=== PATIENT | female | born 1995 | race Hispanic/Latino ===

== ENCOUNTER 2017-10-27 10:51 | Outpatient (CLI) | payer OTHER | END 2017-10-27 10:52 | disposition home or self-care (01) | LOC: BICULT 10:51 | PROVIDERS: ATTEND Student in an Organized Health Care Education/Training Program | DX: Z34.82 Encounter for supervision of other normal pregnancy, second trimester (principal) | CPT/HCPCS: 76805 ==

== ENCOUNTER → 2018-01-15 | Day surgery (SDC) | payer OTHER ==
[~2018-01-15] MED LIST: Acetaminophen 500 MG TAB PO PRN; Butorphanol Tartrate 1 MG/ML VIAL SLOW IVP PRN; Lactated Ringer's 1,000 ML IV SCH; Tamsulosin HCl 0.4 MG CAP PO SCH
[2018-01-15 23:53] VITALS: BP 116/65; TEMP 98; BMI 27.4
[2018-01-15 23:54] LABS: Bilirubin Negative (Negative); Blood, Urine Small (Negative); Clarity CLEAR (Clear); Glucose, Urine (Dipstick) 100 mg/dL (Negative); Leukocyte Negative (Negative); Nitrite Negative (Negative); Protein, Urine (Dipstick) Negative (Neg-Trace); Specific Gravity, Urine 1.012 (1.002-1.036); Urobilinogen 0.2 mg/dL (0.2-1.0); pH, Urine 6.5 (5.0-9.0)
[2018-01-15 23:57] LABS: Bacteria/HPF None Seen HPF (None Seen); Hyaline Casts/LPF 4-6 HYALINE CAST LPF (0-3 Hyaline); Pathc Cast-AUWi Flag 0.58 (0-2.49); Squamous Epithelial 0-3 HPF (0-3); WBC/HPF 0-3 HPF (0-3)
--- NOTE | 2018-01-16 00:04 | PDOC.LDHP ---
Labor and Delivery H&P Chief complaint: other (R. side back pain/painful urination) HPI: 22 yo F @ 32.1 weeks presents to L&D with c/c of painful urination and R. sided back pain. Pt reports today she started experiencing R. sided back pain that would radiate to right side of her abdomen. She also reports having burning sensation when peeing today. Reports increased urinary frequency. Reports her abdomen tightening at times. Pt reports irritating vaginal discharge yesterday. Denies any fever/chills. Denies any SOB/chest pain. Denies any headaches, dizziness, lightheadness. Denies any swelling. Pt reports having uti 1 month ago tx with 7 day course of nitrofurantonin. She said it didn't really resolve so they gave her a 1x abx injection. She states it got a little better but has never improved fully this last month. Reports having tooth infection for last month which she has been taking 500mg amoxicllin. She also had leftover tylenol #3 which she took 1 today for pain and states did not help much with pain. +FM, denies ctx, denies LOF, denies any bleeding. Current gestational age (weeks): 32 (1) Grav: 2 Para: 1 Current complications: other (Pt to get growth U/S in a week for concern of IUGR) Abnormal US findings: No Past Medical History: N/A Current medications: pre- vitamins, other (Amoxcillin) Social history: none - Physical Exam Vital signs reviewed and normal: yes General: NAD, resting, breathing through contractions Heart: RRR Lungs: nonlabored breathing Abdomen: other (R. sided CVA tenderness noted. Abdomen NTTP. No masses noted. Gravid.) Extremeties: no edema FHT: category 1, variability present [place] contractions every: None seen - OB Labs Blood type: unknown Antibody Screen: unknown HIV: unknown RPR: unknown HEPSAg: unknown GBS: unknown - Assessment Possible UTI vs Round Ligament Pain - Plan Plan: observation in L&D -: 22 yo here for burning urination/R. side rib pain -UTI and VP3 ordered. VS stable. No sign of fever. - fibronectin ordered. -FHT cat 1 strip. FHR 140. Will continue to monitor. -Will await results and tx accordingly. <Heath Small - Last Filed: 01/16/18 00:06> <Jocelyn Hernandez - Last Filed: 01/16/18 00:24> Allergies/Adverse Reactions: Allergies Allergy/AdvReac Type Severity Reaction Status Date / Time Penicillins Allergy Mild Rash Verified 01/15/18 23:08 Attending Addendum - Attending Addendum Date/Time: 01/16/18 0023 I personally evaluated the patient and discussed the management with Dr. Small I agree with the History, Examination, Assessment and Plan documented above with any addition or exceptions noted below. UA with +blood but otherwise unremarkable for UTI. Renal ultrasound for kidney stone ordered. Patient advised to increase fluid intake. <Jocelyn Hernandez - Last Filed: 01/16/18 00:24>
--- NOTE | 2018-01-16 00:18 | PDOC.EVN ---
Event Note - Event Note Event Note: 22 yo @ 32.1 weeks presents w/ R. side R. pain. -U/A has no sign of infection. Large amounts of blood noted. Pt still having pain in R. side. Will order Renal U/S to assess for possible stone. -VP3 will not result til morning. -Tylenol PRN for pain. -FHT Cat 1 strip. continue to monitor. <Heath Small - Last Filed: 01/16/18 00:17> Attending Addendum - Attending Addendum Date/Time: 01/16/18 0103 I personally evaluated the patient and discussed the management with Dr. Small. I agree with the History, Examination, Assessment and Plan documented above with any addition or exceptions noted below. Renal ultrasound done but results pending. Will give IV fluids and pain medication at this time. <Jocelyn Hernandez - Last Filed: 01/16/18 01:04>
--- NOTE | 2018-01-16 07:02 | PDOC.EVN ---
Event Note - Event Note Event Note: Ultrasound showed possible 5x7mm stone at the VUJ. After receiving iv fluids and pain medication, patient feeling much better and pain resolved. Would like to go home. No fever or e/o infection at this time. Will d/c home with precautions. Advised to call clinic to schedule follow up appointment. Return if symptoms return.
--- NOTE | 2018-01-16 08:42 | ULT ---
PRELIMINARY REPORT/[facility]/EMERGENTY AFTER-HOURS PROCEDURE US Retroperitoneal Complete EXAM DATE/TIME: 01/16/2018 12:35 AM CLINICAL HISTORY: 22 years old, female; Abdominal pain; Right flank pain, blood in urine; 32 wks TECHNIQUE: Real-time ultrasound of the retroperitoneum with image documentation. Complete exam. COMPARISON: No relevant prior studies available. FINDINGS: The right kidney measures 13.3 cm longitudinally. The left kidney measures 11.4 cm longitudinally. Normal renal cortical echogenicity. Moderate right hydronephrosis. Possible 7 x 5 mm calcified stone in the region of the right UVJ. Minimal left hydronephrosis. No calcified renal stones. No perinephric fluid collections. Prevoid bladder via mist 225 mL. Left ureteral jet is visualized. IMPRESSION: 1. Moderate right hydronephrosis. Possible 7 x 5 mm calcified stone in the region of the right UVJ. 2. Minimal left hydronephrosis. Thank you for allowing us to participate in the care of your patient. Dictated and Authenticated by: Amauri Ahn MD 01/16/2018 1:25 AM Central Time ([place] & [place]) FINAL REPORT BILATERAL RENAL ULTRASOUND: History: Hematuria. Evaluate for hydronephrosis. Comparison: None. FINDINGS: This report is in agreement with preliminary report by [facility]. There is moderate right sided hydronephr osis. Mild left sided hydronephrosis. Questionable calculus in the right ureterovesicular junction me asuring 0.7 cm. Left ureteral jet is noted. POS: [facility]
== END ==
LOC: L&D/OP 22:38
PROVIDERS: ATTEND Obstetrics & Gynecology
DX: O99.89 Other specified diseases and conditions complicating pregnancy, childbirth and the puerperium (principal); N13.30 Unspecified hydronephrosis; R31.9 Hematuria, unspecified; N89.8 Other specified noninflammatory disorders of vagina; O99.613 Diseases of the digestive system complicating pregnancy, third trimester; K04.7 Periapical abscess without sinus; Z3A.32 32 weeks gestation of pregnancy; Z79.2 Long term (current) use of antibiotics; Z79.899 Other long term (current) drug therapy; Z88.0 Allergy status to penicillin
CPT/HCPCS: 51701; 76770; 81001; 87086; 87480; 87510; 87660; 96360; 96375; 99283; J0595

== ENCOUNTER 2018-01-24 13:28 | Outpatient (CLI) | payer OTHER ==
--- NOTE | 2018-01-24 14:41 | ULT ---
COMPLETE OB ULTRASOUND GREATER THAN 14 WEEKS: HISTORY: Size and dates. FINDINGS: A single viable intrauterine fetus is noted in cephalic presentation. Placenta is fundal. hea rt rate 133 b.p.m. Lower uterine segment was less than optimally seen. Amniotic fluid index 13.4 cm . Visualized brain, 4-chamber heart, stomach, kidneys, cord insert, bladder, spine, lips and nose , and 3-vessel cord were demonstrated and appear within normal limits. BIOMETRY: BPD 8.3 cm-33 weeks 2 days Head circumference 32.2 cm-36 weeks 6 days Abdominal circumference 29.1 cm-33 weeks 1 day Femur length 6.7 cm-34 weeks 3 days IMPRESSION: 1. Gestational age average 34 weeks 3 days. Estimated date of delivery 03/04/2018. 2. Estimated weight 2281 grams. POS: [facility]
== END 2018-01-24 13:29 | disposition home or self-care (01) ==
LOC: BICULT 13:28
PROVIDERS: ATTEND Obstetrics & Gynecology
DX: Z34.83 Encounter for supervision of other normal pregnancy, third trimester (principal); Z3A.34 34 weeks gestation of pregnancy
CPT/HCPCS: 76805

== ENCOUNTER 2018-03-08 04:39 | Inpatient (IN) | payer MEDICAID, OTHER, SELFPAY ==
[2018-03-08] MEDS: Lactated Ringer's 1,000 ML IV SCH ×2 (05:21→08:21)
[2018-03-08] MEDS ORDERED: Ondansetron PF 4 MG/2 ML Vial IVP PRN ×2 (05:22→13:11)
[2018-03-08] MEDS ORDERED: Acetaminophen/Codeine 30-300mg Tablet PO PRN ×2 (05:22)
[2018-03-08] MEDS ORDERED: Ibuprofen 800 MG TAB PO PRN (05:22)
[2018-03-08] MEDS ORDERED: Lidocaine 1% (PF) 30 ML VIAL SC PRN (05:22)
[2018-03-08 05:26] VITALS: BMI 27.1
[2018-03-08] MEDS ORDERED: Lactated Ringer's 1,000 ML IV SCH (05:30)
[2018-03-08 05:35] LABS: Hemoglobin 14.6 g/dL (12.0-16.0); Mean Corpuscular HGB CONC 35.2 g/dL (32.0-36.0); Mean Corpuscular Hemoglobin 32.4 pg (27.0-31.0); Mean Corpuscular Volume 91.9 fL (78.0-98.0); Mean Platelet Volume 8.7 fL (7.4-10.4); Platelet Count 209 thou/uL (130-400); Red Blood Cell (RBC) Count 4.49 mill/uL (4.20-5.40); White Blood Cell (WBC) Count 10.4 thou/uL (4.8-10.8)
[2018-03-08] MEDS ORDERED: Butorphanol Tartrate 1 MG/ML VIAL SLOW IVP PRN (05:35)
[2018-03-08] MEDS ORDERED: Butorphanol Tartrate 1 MG/ML VIAL ONE (05:41)
[2018-03-08] MEDS ORDERED: CEFAZOLIN 2 GM/50 ML BAG IVPB SCH (05:45)
[2018-03-08] MEDS ORDERED: CEFAZOLIN 1 GM in Sodium Chloride 0.9% 100 ML IVPB SCH (06:00)
[2018-03-08 06:14] LABS: HBSAg Index 0.24 S/CO (0-0.99); Hep B Surf Ag Non-Reactive S/CO (NonReactive); Syphilis Antibody Nonreactive (Nonreactive); Syphilis Antibody Index 0.04 S/CO (<1.00 Non-Reactive)
[2018-03-08] MEDS: NS / Oxytocin 40 units/1000ml 1,000 ML IV PRN ×2 (09:07→10:21)
--- NOTE | 2018-03-08 09:37 | PDOC.OPDEL ---
OB Operative/Delivery Note Delivery Dr/Surgeon: Denia Damon DO Pre-Delivery Diagnosis: active labor Procedure/Post Delivery Dx: spontaneous vaginal delivery Weeks gestation: 39 Anesthesia: local - Findings A Sex: male - 1 min: 9 - 5 min: 9 - Additional Findings/Plan Placenta delivered: spontaneous Repaired Obstetrical Laceration: 2nd degree (Deep 2nd degree, could visualize annal sphincter, but not disrupted.) Estimated blood loss: EBL 300 cc Compilations/Other Findings: in cephalic presentation Clear amniotic fluid Normal appearing placenta and cord Deep 2nd degree laceration repaired, able to see sphincter, however, not disrupted. Deep layers reapproximated with interrupted and remainder repaired in typical fashion. Post delivery plan: routine recovery
[2018-03-08] MEDS ORDERED: HYDROcodone/Acetaminophen 5/325 mg Tablet PO PRN (09:55)
[2018-03-08] MEDS ORDERED: Preparation H Ointment 28 GM TUBE PR PRN (13:11)
[2018-03-08] MEDS ORDERED: Methylergonovine 0.2 MG/ML VIAL IM PRN (13:11)
[2018-03-08] MEDS ORDERED: NS / Oxytocin 40 units/1000ml 1,000 ML IV SCH (13:11)
[2018-03-08] MEDS ORDERED: Milk Of Magnesia 30 ML UDCUP PO PRN (13:11)
[2018-03-08] MEDS ORDERED: Benzocaine/Menthol 20-0.5% 60 ML CAN TOP PRN (13:11)
[2018-03-08] MEDS ORDERED: diphenhydrAMINE 25 MG CAP PO PRN (13:11)
[2018-03-08] MEDS ORDERED: Zolpidem Tartrate 5 MG TAB PO PRN (13:11)
[2018-03-08] MEDS ORDERED: Lanolin Ointment 7 GM TUBE TOP PRN (13:11)
[2018-03-08] MEDS ORDERED: Promethazine HCl 25 MG/ML VIAL IM PRN (13:11)
[2018-03-08] MEDS ORDERED: Misoprostol 200 MCG TAB VAG PRN (13:11)
--- NOTE | 2018-03-08 13:12 | PDOC.LDHP ---
Labor and Delivery H&P Chief complaint: contractions HPI: LATE ENTRY H&P 22 yo @ 39w4d admit for active labor, 8 cm on initial evaluation Current gestational age (weeks): 39 Due date: 03/11/18 Dating criteria: last menstrual period Grav: 2 Para: 1 OB History Details: 1 term Current complications: none Abnormal US findings: No Past Medical History: Denies Current medications: pre-samuel vitamins Previous surgical history: none Allergies/Adverse Reactions: Allergies Allergy/AdvReac Type Severity Reaction Status Date / Time Penicillins Allergy Mild Rash Verified 03/08/18 05:06 Social history: none - Physical Exam Vital signs reviewed and normal: yes General: NAD Heart: RRR Lungs: nonlabored breathing Abdomen: gravid Extremeties: no edema FHT: category 1 [place] contractions every: q2-3 min - Vaginal Exam cm dilated: 9 (cephalic, AROM clear fluid on my initial exam ) Effacement: 100% Station: 0 - OB Labs Blood type: O RH: positive Antibody Screen: negative HIV: negative RPR: negative HEPSAg: negative 1 hour GCT: negative GBS: positive Urine drug screen: negative Additional Labs: AFP negative - Assessment L&D Assessment: term patient in labor - Plan Plan: admit to L&D, GBS antibiotic prophylaxis, informed consent obtained, anesthesia consult for pain management
[2018-03-08] MEDS: Ibuprofen 800 MG TAB PO SCH ×2 (14:08→21:26)
[2018-03-08] MEDS: HYDROcodone/Acetaminophen 5/325 mg Tablet PO PRN ×2 (14:12→18:35)
[2018-03-08] MEDS: Docusate Calcium (SURFAK) 240 MG CAP PO SCH (21:26)
[2018-03-09] MEDS: Ibuprofen 800 MG TAB PO SCH ×3 (05:56→21:20)
[2018-03-09] MEDS: HYDROcodone/Acetaminophen 5/325 mg Tablet PO PRN ×2 (06:33→21:20)
[2018-03-09 07:02] LABS: Mean Corpuscular HGB CONC 34.7 g/dL (32.0-36.0); Mean Corpuscular Hemoglobin 32.5 pg (27.0-31.0); Mean Corpuscular Volume 93.8 fL (78.0-98.0); Mean Platelet Volume 9.1 fL (7.4-10.4); Platelet Count 191 thou/uL (130-400); RBC Distribution Width 12.2 % (11.5-14.5); Red Blood Cell (RBC) Count 3.67 mill/uL (4.20-5.40)
--- NOTE | 2018-03-09 08:20 | RAD ---
AP PELVIS: Date: 03/09/18 HISTORY: Evaluation for pubic symphysis diastasis. FINDINGS: There is mild widening to the symphysis, which measures approximately 11.0 mm. SI joints appear symme tric. I do not appreciate any fractures. IMPRESSION: Mild diastasis of the symphysis. POS: [facility]
--- NOTE | 2018-03-09 08:31 | PDOC.PP ---
Post Progress Note Post Day #: 1 Subjective: Minimal bleeding. Breast and formula feeding. Pt does c/o tenderness at pubic symphysis and some in her right hip. She is able to walk unassisted and denies any numbness of tingling. No other concerns. PO intake tolerated: yes Flatus: yes Ambulation: yes Vital Signs (12 hours) Temp Pulse Resp BP Pulse Ox 03/09/18 08:00 97.9 F 59 L 20 100/58 L 97 03/09/18 06:30 62 93/51 L 03/09/18 04:25 98.1 F 62 18 92/54 L 97 03/09/18 00:00 98.4 F 63 18 98/53 L 98 03/08/18 20:30 97.7 F 62 16 97/55 L 97 Weight Weight 163 lb - Physical Examination General: NAD Cardiovascular: RRR Respiratory: non-labored breathing Abdominal: no distention, appropriately TTP Fundus firm & at: below umbilius Extremities: negative homans (B) Deviation from normal: Mild-mod ttp at pubic symphysis; passive and active ROM LEs wnl Perineum: decreased swelling Neurological: no gross focal deficits Psychiatric: A&Ox3, normal affect Result Diagrams: 03/09/18 06:09 Additional Labs: Post Labs Blood Type O POSITIVE 03/08/18 05:23 Hep Bs Antigen Non-Reactive S/CO (NonReactive) 03/08/18 05:23 (1) (spontaneous vaginal delivery) Code(s): O80 - ENCOUNTER FOR FULL-TERM UNCOMPLICATED DELIVERY Status: Acute - Assessment/Plan PPD 1 VSSAF Pelvic XR done, mild pelvic symphysis diastasis 11 mm. Reviewed with ortho and no need for binder at this time as she is able to ambulate and mild. Advised to take PRN pain meds and should improve post . Plan for d/c home today with PRN pain meds sent to pharmacy.
[2018-03-09] MEDS: Prenatal Vitamin 1 TAB PO SCH (09:00)
[2018-03-09] MEDS: Docusate Calcium (SURFAK) 240 MG CAP PO SCH ×2 (09:00→21:20)
[2018-03-10] MEDS: Ibuprofen 800 MG TAB PO SCH ×2 (05:37→14:02)
--- NOTE | 2018-03-10 05:47 | PDOC.PP ---
Post Progress Note Post Day #: 2 Subjective: Abdominal discomfort now better; desires DC to home PO intake tolerated: yes Flatus: yes Ambulation: yes Vital Signs (12 hours) Temp Pulse Resp BP Pulse Ox 03/09/18 20:15 97.7 F 78 16 96/56 L 98 Weight Weight 163 lb - Physical Examination General: NAD Cardiovascular: no m/r/g Respiratory: clear to auscultation bilaterally Abdominal: + bowel sounds, lochia, no distention Extremities: negative homans (B) Neurological: no gross focal deficits Psychiatric: A&Ox3, normal affect Result Diagrams: 03/09/18 06:09 Additional Labs: Post Labs Blood Type O POSITIVE 03/08/18 05:23 Hep Bs Antigen Non-Reactive S/CO (NonReactive) 03/08/18 05:23 (1) (spontaneous vaginal delivery) Code(s): O80 - ENCOUNTER FOR FULL-TERM UNCOMPLICATED DELIVERY Status: Acute - Assessment/Plan PPD 2 from 03/08...doing well. OK for DC to home today. F/U 4 weeks
[2018-03-10 08:56] VITALS: BP 104/56; TEMP 98.1
[2018-03-10] MEDS: Docusate Calcium (SURFAK) 240 MG CAP PO SCH (09:36)
[2018-03-10] MEDS: Prenatal Vitamin 1 TAB PO SCH (09:36)
== END 2018-03-10 15:30 | disposition home or self-care (01) | DRG 807 ==
LOC: L&D/OP 04:39 → L&D 05:19 → 3SW 13:26
PROVIDERS: ADMIT Obstetrics & Gynecology; ATTEND Obstetrics & Gynecology
PROC: 10E0XZZ Delivery of Products of Conception, External Approach (ICD-10-PCS; principal; 2018-03-08)
PROC: 0KQM0ZZ Repair Perineum Muscle, Open Approach (ICD-10-PCS; 2018-03-08)
PROC: 10907ZC Drainage of Amniotic Fluid, Therapeutic from Products of Conception, Via Natural or Artificial Opening (ICD-10-PCS; 2018-03-08)
DX: O99.824 Streptococcus B carrier state complicating childbirth (principal); O71.6 Obstetric damage to pelvic joints and ligaments; O70.1 Second degree perineal laceration during delivery; Z37.0 Single live birth; Z3A.39 39 weeks gestation of pregnancy
CPT/HCPCS: 36415; 72170; 85027; 86780; 86850; 86900; 86901; 87340; 99285; J0595; J0690; J2001; J7050